=== PATIENT | male | born 1950 | race Caucasian/White ===

== ENCOUNTER 2017-05-04 20:48 | Inpatient (IN) | payer MEDICARE ==
[2017-05-04 21:05] VITALS: BMI 23.4
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
[2017-05-04] MEDS ORDERED: MAG HYDROX/AL HYDROX/SIMETH 30 ML UNIT-DOSE CUP PO PRN (21:15)
[2017-05-04] MEDS ORDERED: NICOTINE POLACRILEX 4 MG GUM BUC PRN (21:15)
[2017-05-04] MEDS ORDERED: MENTHOL/PHENOL 1 EACH UD MM PRN (21:15)
[2017-05-04] MEDS ORDERED: MAGNESIUM CITRATE 300 ML BOTTLE PO PRN (21:15)
[2017-05-04] MEDS ORDERED: MAGNESIUM HYDROX 2400MG/30ML ORAL SUSPENSION 30 ML CUP PO PRN (21:15)
[2017-05-04] MEDS ORDERED: hydrOXYzine PAMOATE 25 MG CAPSULE (FP) PO PRN (21:15)
[2017-05-04] MEDS ORDERED: P-EPHED 60MG/TRIPROLIDI 2.5MG TABLET PO PRN (21:15)
[2017-05-04] MEDS ORDERED: guaiFENesin/D-METHORPHAN HB 10 ML UNIT-DOSE CUPS PO PRN (21:15)
[2017-05-04] MEDS ORDERED: chlordiazePOXIDE HCL 25 MG CAPSULE PO ONE (21:15)
[2017-05-04] MEDS ORDERED: ACETAMINOPHEN 325 MG TABLET (FP) PO PRN (21:15)
[2017-05-04] MEDS ORDERED: LOPERAMIDE HCL 2 MG CAPSULE PO PRN (21:15)
[2017-05-04] MEDS ORDERED: diphenhydrAMINE HCL 50 MG CAPSULE PO PRN (21:15)
[2017-05-04] MEDS: THIAMINE HCL 100 MG TABLET (FP) PO SCH (22:17)
[2017-05-04] MEDS: chlordiazePOXIDE HCL 25 MG CAPSULE PO SCH (22:18)
[2017-05-05] MEDS: chlordiazePOXIDE HCL 25 MG CAPSULE PO SCH ×4 (05:15→22:34)
[2017-05-05] MEDS: PRENATAL VITAMINS W/ FOLIC ACID TABLET (FP) PO SCH (10:05)
[2017-05-05] MEDS: NICOTINE 21 MG/24 HOURS TOPICAL PATCH TD SCH (10:05)
[2017-05-05 10:08] LABS: MCH 34.5 pg (25.7-33.7); MCHC 33.8 g/dl (32.0-35.9); MEAN CELL VOLUME 102.1 fl (80-96); MEAN PLT VOLUME 7.7 fl (7.5-11.1); PLATELET COUNT 110 K/MM3 (134-434); RDW 13.7 % (11.9-15.9); WHITE BLOOD COUNT 4.4 K/mm3 (4.0-10.0)
[2017-05-05 10:12] LABS: URINE APPEARANCE CLOUDY; URINE BILIRUBIN NEGATIVE (NEGATIVE); URINE BLOOD NEGATIVE (NEGATIVE); URINE COLOR YELLOW; URINE GLUCOSE (UA) NEGATIVE (NEGATIVE); URINE KETONE NEGATIVE (NEGATIVE); URINE LEUK ESTERASE NEGATIVE (NEGATIVE); URINE NITRITE NEGATIVE (NEGATIVE); URINE PROTEIN NEGATIVE (NEGATIVE); URINE UROBILINOGEN 4.0 E.U/dl mg/dL (0.2-1.0)
[2017-05-05 10:21] LABS: ALBUMIN 3.4 g/dl (3.4-5.0); ANION GAP 10 (8-16); CALCIUM 8.8 mg/dL (8.5-10.1); CO2 29 mmol/L (21-32); CREATININE 0.6 mg/dL (0.7-1.3); GLUCOSE,RANDOM 77 mg/dL (74-106); SGOT/AST 62 U/L (15-37); SGPT/ALT 31 U/L (12-78)
[2017-05-05 10:24] LABS: ALK PHOS 89 U/L (45-117); BILIRUBIN,TOTAL 1.3 mg/dL (0.2-1.0); TOT PROT 6.9 g/dl (6.4-8.2)
--- NOTE | 2017-05-05 12:47 | EKG ---
Test Reason : Blood Pressure : / mmHG Vent. Rate : 083 BPM Atrial Rate : 083 BPM P-R Int : 146 ms QRS Dur : 094 ms QT Int : 396 ms P-R-T Axes : 061 -45 070 degrees QTc Int : 465 ms NORMAL SINUS RHYTHM INCOMPLETE RIGHT BUNDLE BRANCH BLOCK LEFT ANTERIOR FASCICULAR BLOCK SEPTAL INFARCT , AGE UNDETERMINED ABNORMAL ECG NO PREVIOUS ECGS AVAILABLE Confirmed by GRETA FLORIAN MD ([id number]) on 05/05/2017 12:46:48 PM Referred By: Confirmed By:GRETA FLORIAN MD
--- NOTE | 2017-05-05 13:51 | PN ---
[facility] CIWA - CIWA Score Nausea/Vomitin-Mild Nausea/No Vomiting Muscle Tremors: 6 Anxiety: 4-Mod. Anxious/Guarded Agitation: 3 Paroxysmal Sweats: 2 Orientation: 2-Disoriented Date<2 days Tacttile Disturbances: 3-Moderate Itch/Numb/Burn Auditory Disturbances: 0-None Visual Disturbances: 1-Very Mild Sensitivity Headache: 0-None Present CIWA-Ar Total Score: 22 S Progress Note (SOAP) Subjective: Body Aches, Tremors, Interrupted sleep. Objective: PT. A & O X 2 (DISORIENTED ABOUT DAY / DATE). NO ACUTE DISTRESS. PT. DENIES CHEST PAIN. 05/05/17 13:47 Vital Signs Temperature 98.6 F 05/05/17 09:48 Pulse Rate 115 H 05/05/17 09:48 Respiratory Rate 20 05/05/17 09:48 Blood Pressure 161/88 05/05/17 09:48 O2 Sat by Pulse Oximetry (%) Laboratory Tests 05/05/17 05/05/17 05/05/17 06:30 06:30 06:30 WBC 4.4 RBC 3.45 L Hgb 11.9 Hct 35.2 L MCV 102.1 H MCH 34.5 H MCHC 33.8 RDW 13.7 Plt Count 110 L D MPV 7.7 Sodium 140 Potassium 3.3 L Chloride 101 Carbon Dioxide 29 Anion Gap 10 BUN 9 Creatinine 0.6 L Creat Clearance w eGFR > 60 Random Glucose 77 Calcium 8.8 Total Bilirubin 1.3 H D AST 62 H D ALT 31 D Alkaline Phosphatase 89 Total Protein 6.9 Albumin 3.4 Urine Color Urine Appearance Urine pH Urine Protein Urine Glucose (UA) Urine Ketones Urine Blood Urine Nitrite Urine Bilirubin Urine Urobilinogen Ur Leukocyte Esterase RPR Titer Nonreactive 05/05/17 07:15 WBC RBC Hgb Hct MCV MCH MCHC RDW Plt Count MPV Sodium Potassium Chloride Carbon Dioxide Anion Gap BUN Creatinine Creat Clearance w eGFR Random Glucose Calcium Total Bilirubin AST ALT Alkaline Phosphatase Total Protein Albumin Urine Color Yellow Urine Appearance Cloudy Urine pH 7.0 Urine Protein Negative Urine Glucose (UA) Negative Urine Ketones Negative Urine Blood Negative Urine Nitrite Negative Urine Bilirubin Negative Urine Urobilinogen 4.0 e.u/dl Ur Leukocyte Esterase Negative RPR Titer LABS NOTED. Assessment: 05/05/17 13:48 WITHDRAWAL SYMPTOMS. Plan: CONTINUE DETOX. K, 20 MEQ NOW, THEN 20 MEQ BID AFTER. CLONIDINE, 0.1 MG X 1 FOR ELEVATED BP AND FOR DETOX SYMPTOMS. REPEAT CBC ON 05/07/2017 FOR ABNORMAL ADMISSION LEVELS. INCREASE PO FLUID INTAKE.
[2017-05-05] MEDS ORDERED: cloNIDine HCL 0.1 MG TABLET PO ONE (13:57)
[2017-05-05] MEDS: POTASSIUM CHLORIDE TABS 20 MEQ TABLET.ER (FP) PO SCH ×2 (15:13→22:34)
[2017-05-05] MEDS: amLODIPine BESYLATE 5 MG TABLET (FP) PO SCH (17:27)
[2017-05-05] MEDS: THIAMINE HCL 100 MG TABLET (FP) PO SCH (22:34)
[2017-05-06] MEDS: chlordiazePOXIDE HCL 25 MG CAPSULE PO SCH ×3 (07:09→17:12)
[2017-05-06] MEDS: amLODIPine BESYLATE 5 MG TABLET (FP) PO SCH (10:13)
[2017-05-06] MEDS: NICOTINE 21 MG/24 HOURS TOPICAL PATCH TD SCH (10:13)
[2017-05-06] MEDS: PRENATAL VITAMINS W/ FOLIC ACID TABLET (FP) PO SCH (10:13)
[2017-05-06] MEDS: POTASSIUM CHLORIDE TABS 20 MEQ TABLET.ER (FP) PO SCH ×2 (10:13→21:58)
[2017-05-06] MEDS ORDERED: LACTULOSE 20 GM/30 ML UDC (FOR ORAL USE ONLY) PO SCH (11:15)
--- NOTE | 2017-05-06 11:24 | PN ---
[facility] CIWA - CIWA Score Nausea/Vomitin-No Nausea/No Vomiting Muscle Tremors: 6 Anxiety: 2 Agitation: 2 Paroxysmal Sweats: 3 Orientation: 2-Disoriented Date<2 days Tacttile Disturbances: 1-Very Mild Itch/Numbness Auditory Disturbances: 0-None Visual Disturbances: 2-Mild Sensitivity Headache: 0-None Present CIWA-Ar Total Score: 18 [facility] Progress Note (SOAP) Subjective: Fatigue, Tremors, Sweating, Nausea, Constipation, Body Aches. Objective: PT. A & O X 2 (DISORIENTED ABOUT DAY / DATE). NO ACUTE DISTRESS. PT. DENIES CHEST PAIN. 05/06/17 11:22 Vital Signs Temperature 97.3 F L 05/06/17 09:41 Pulse Rate 115 H 05/06/17 09:41 Respiratory Rate 18 05/06/17 09:41 Blood Pressure 134/76 05/06/17 09:41 O2 Sat by Pulse Oximetry (%) Laboratory Tests 05/05/17 05/05/17 05/05/17 06:30 06:30 06:30 WBC 4.4 RBC 3.45 L Hgb 11.9 Hct 35.2 L MCV 102.1 H MCH 34.5 H MCHC 33.8 RDW 13.7 Plt Count 110 L D MPV 7.7 Sodium 140 Potassium 3.3 L Chloride 101 Carbon Dioxide 29 Anion Gap 10 BUN 9 Creatinine 0.6 L Creat Clearance w eGFR > 60 Random Glucose 77 Calcium 8.8 Total Bilirubin 1.3 H D AST 62 H D ALT 31 D Alkaline Phosphatase 89 Ammonia Total Protein 6.9 Albumin 3.4 Urine Color Urine Appearance Urine pH Ur Specific [place] Urine Protein Urine Glucose (UA) Urine Ketones Urine Blood Urine Nitrite Urine Bilirubin Urine Urobilinogen Ur Leukocyte Esterase RPR Titer Nonreactive 05/05/17 05/06/17 07:15 06:30 WBC RBC Hgb Hct MCV MCH MCHC RDW Plt Count MPV Sodium Potassium Chloride Carbon Dioxide Anion Gap BUN Creatinine Creat Clearance w eGFR Random Glucose Calcium Total Bilirubin AST ALT Alkaline Phosphatase Ammonia 45.03 H Total Protein Albumin Urine Color Yellow Urine Appearance Cloudy Urine pH 7.0 Ur Specific [place] 1.020 Urine Protein Negative Urine Glucose (UA) Negative Urine Ketones Negative Urine Blood Negative Urine Nitrite Negative Urine Bilirubin Negative Urine Urobilinogen 4.0 e.u/dl Ur Leukocyte Esterase Negative RPR Titer LABS NOTED. RESULT OF AMMONIA LEVEL DRAWN 05/06/2017 NOTED. 05/06/17 11:23 05/06/17 11:23 05/06/17 11:53 Assessment: 05/06/17 11:22 WITHDRAWAL SYMPTOMS. Plan: CONTINUE DETOX. START LACTULOSE, 20 GRAMS PO BID, FIRST DOSE NOW. CONTINUE TO MONITOR BP. RE-CHECK K AND AMMONIA LEVELS TOMORROW AM.
[2017-05-06] MEDS: IBUPROFEN 400 MG TABLET (FP) PO PRN (11:54)
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
[2017-05-06] MEDS: chlordiazePOXIDE HCL 25 MG CAPSULE PO PRN (14:54)
--- NOTE | 2017-05-06 15:45 | CONSULT ---
[facility] Psychiatric Consult - Data Date of interview: 05/06/17 Admission source: [facility] Identifying data: Readmission to [facility] for this 66 y/o male seeking detoxification treatment on for alcohol dependence.Patient is uncooperative,agitated,erratic as evidenced by his insistence to leave the unit in spite of a clear context of mental confusion/medical instability (elevated ammonia level = 45.03).No demographic information is provided by the patient at this time. Substance Abuse History: Patient presents with an extensive history of alcohol abuse (45 years).Previous records indicate a pattern of multiple evaluations at [facility] (alcohol intoxication).Smokes one pack of cigarettes daily. Medical History: Patient is a poor historian due to cloudiness of sensorium.Review of [facility] report indicates that this patient,with the exception of alcohol-related issues,has a fair medical profile. Psychiatric History: Patient denies history of psychiatric hospitalizations.No OPD care.Mr Zhang denies history of suicide attempts. Physical/Sexual Abuse/Trauma History: Not discussed in this interview. Additional Comment: Utox screen not available.Breath Alcohol Content: 0.374 on admission (noted in S report). Mental Status Exam - Mental Status Exam Alert and Oriented to: Place, Person Cognitive Function: Grossly Intact Patient Appearance: Unkempt, Disheveled (malodorous) Mood: Angry, Hostile, Irritable Affect: Blunted Patient Behavior: Restless (coarse tremors of upper extremities), Uncooperative , Impulsive, Resitive to Care, Agitated (wants to leave the unit) Speech Pattern: Inappropriate, Excessive, Perseverating (disorganized) Voice Loudness: Mildly Loud Thought Process: Disorganized Thought Disorder: Paranoid Ideation, Bizarre Hallucinations: Denies Suicidal Ideation: Denies Homicidal Ideation: Denies Insight/Judgement: Impaired Sleep: Poorly Appetite: Fair Gait/Station: Other (unsteady gait) Psychiatric Findings - Problem List ([place] 1, 2,3) (1) Delirium Current Visit: Yes Status: Suspected (2) Alcohol dependence with uncomplicated withdrawal Current Visit: Yes Status: Acute (3) Nicotine dependence Current Visit: Yes Status: Acute Qualifiers: Nicotine product type: cigarettes - Initial Treatment Plan Initial Treatment Plan: Previous records are reviewed.[facility] report is appreciated.Labs results seen.Case presented by KEDAR Prieto and URSULA Abad.Options of treatment are revisited.Constant Observation (1:1) for safety/ prevention of elopement : ordered.Detoxification is under way.Medical vigilance.Review of recent pharmacy claims : no data.Home medications : no information.Consider collection of collateral information (relatives/previous caregivers).Seroquel 25 mg po bid to address agitation.Fall precautions.Will follow progress.
[2017-05-06] MEDS: QUEtiapine FUMARATE 25 MG TABLET (FP) PO SCH (21:58)
[2017-05-06] MEDS: chlordiazePOXIDE 5 MG CAPSULE PO SCH (21:59)
[2017-05-06] MEDS ORDERED: QUEtiapine FUMARATE 50 MG TABLET PO SCH (22:00)
[2017-05-06] MEDS: LACTULOSE 20 GM/30 ML UDC (FOR ORAL USE ONLY) PO SCH (22:02)
[2017-05-06] MEDS: THIAMINE HCL 100 MG TABLET (FP) PO SCH (22:02)
[2017-05-06] MEDS: METHYL SALICYLATE/MENTHOL OINT 30 GM TUBE TP SCH (22:08)
[2017-05-07] MEDS: chlordiazePOXIDE 5 MG CAPSULE PO SCH ×3 (06:12→17:58)
[2017-05-07] MEDS: LACTULOSE 20 GM/30 ML UDC (FOR ORAL USE ONLY) PO SCH ×2 (09:26→22:00)
[2017-05-07] MEDS: METHYL SALICYLATE/MENTHOL OINT 30 GM TUBE TP SCH ×2 (09:26→22:43)
[2017-05-07] MEDS: POTASSIUM CHLORIDE TABS 20 MEQ TABLET.ER (FP) PO SCH ×2 (09:26→22:00)
[2017-05-07] MEDS: PRENATAL VITAMINS W/ FOLIC ACID TABLET (FP) PO SCH (09:26)
[2017-05-07] MEDS: QUEtiapine FUMARATE 25 MG TABLET (FP) PO SCH ×2 (09:27→22:00)
[2017-05-07 10:33] LABS: BASOPHIL 0.6 % (0-2.0); EOSINOPHIL 9.1 % (0-4.5); MCH 34.2 pg (25.7-33.7); MEAN CELL VOLUME 103.6 fl (80-96); MEAN PLT VOLUME 8.2 fl (7.5-11.1); PLATELET COUNT 122 K/MM3 (134-434); RDW 13.1 % (11.9-15.9); WHITE BLOOD COUNT 3.9 K/mm3 (4.0-10.0)
[2017-05-07] MEDS: NICOTINE 21 MG/24 HOURS TOPICAL PATCH TD SCH (10:41)
[2017-05-07] MEDS: HYDROCORTISONE 0.5% TOPICAL OINTMENT TUBE TP SCH ×2 (10:41→22:43)
[2017-05-07] MEDS: amLODIPine BESYLATE 5 MG TABLET (FP) PO SCH (10:41)
--- NOTE | 2017-05-07 10:42 | PN ---
[facility] Progress Note (SOAP) Subjective: PATIENT UNWILLING TO DISCUSS CURRENT DETOX SYMPTOMS WITH [employer] SALES REPRESENTATIVE TODAY. Objective: PT. STILL ON 1:1 CONTINUOUS OBSERVATION FOR SAFETY. PT. OBSERVED AMBULATING ON UNIT. WHEN ASKED ABOUT , AWARENESS OF CURRENT DAY / DATE AND OF CURRENT LOCATION, PT. UNWILLING TO RESPOND. 05/07/17 10:41 Vital Signs Temperature 98.1 F 05/07/17 09:40 Pulse Rate 82 05/07/17 09:40 Respiratory Rate 18 05/07/17 09:40 Blood Pressure 108/55 05/07/17 09:40 O2 Sat by Pulse Oximetry (%) Laboratory Tests 05/05/17 05/05/17 05/05/17 06:30 06:30 06:30 WBC 4.4 RBC 3.45 L Hgb 11.9 Hct 35.2 L MCV 102.1 H MCH 34.5 H MCHC 33.8 RDW 13.7 Plt Count 110 L D MPV 7.7 Neutrophils % Lymphocytes % Monocytes % Eosinophils % Basophils % Sodium 140 Potassium 3.3 L Chloride 101 Carbon Dioxide 29 Anion Gap 10 BUN 9 Creatinine 0.6 L Creat Clearance w eGFR > 60 Random Glucose 77 Calcium 8.8 Total Bilirubin 1.3 H D AST 62 H D ALT 31 D Alkaline Phosphatase 89 Ammonia Total Protein 6.9 Albumin 3.4 Urine Color Urine Appearance Urine pH Ur Specific [place] Urine Protein Urine Glucose (UA) Urine Ketones Urine Blood Urine Nitrite Urine Bilirubin Urine Urobilinogen Ur Leukocyte Esterase RPR Titer Nonreactive 05/05/17 05/06/17 05/07/17 07:15 06:30 06:30 WBC 3.9 L RBC 3.45 L Hgb 11.8 Hct 35.7 MCV 103.6 H MCH 34.2 H MCHC 33.0 RDW 13.1 Plt Count 122 L MPV 8.2 Neutrophils % 58.0 D Lymphocytes % 22.0 D Monocytes % 10.3 H Eosinophils % 9.1 H Basophils % 0.6 Sodium Potassium Chloride Carbon Dioxide Anion Gap BUN Creatinine Creat Clearance w eGFR Random Glucose Calcium Total Bilirubin AST ALT Alkaline Phosphatase Ammonia 45.03 H Total Protein Albumin Urine Color Yellow Urine Appearance Cloudy Urine pH 7.0 Ur Specific [place] 1.020 Urine Protein Negative Urine Glucose (UA) Negative Urine Ketones Negative Urine Blood Negative Urine Nitrite Negative Urine Bilirubin Negative Urine Urobilinogen 4.0 e.u/dl Ur Leukocyte Esterase Negative RPR Titer LABS NOTED. RESULT OF REPEAT AMMONIA LEVEL DRAWN EARLIER THIS AM PENDING. 05/07/17 10:46 Assessment: 05/07/17 10:46 WITHDRAWAL SYMPTOMS. Plan: CONTINUE DETOX. INCREASE PO FLUID INTAKE. PT. EXPRESSING DESIRE TO LEAVE DETOX UNIT AMA. ENCOURAGED PT. TO STAY TO COMPLETE DETOX REGIMEN. MAINTAIN 1:1 CONTINUOUS OBSERVATION FOR SAFETY.
[2017-05-07] MEDS ORDERED: LACTULOSE 20 GM/30 ML UDC (FOR ORAL USE ONLY) PO ONE (15:30)
--- NOTE | 2017-05-07 15:36 | PN ---
[facility] Progress Note Note: RESULT OF REPEAT AMMONIA LEVEL (44.0) NOTED. DAILY LACTULOSE SCHEDULE CHANGED TO TID (FIRST DOSE NOW). PUMPER BREWERY Leora TIRADO AND Rufina COOPER CURRENTLY IN PROCESS OF WORKING ON HELPING TO ARRANGE DISCHARGE PLANNING FOR PATIENT. OUTCOME PENDING. Rufina PALMER NP
[2017-05-07] MEDS: chlordiazePOXIDE HCL 25 MG CAPSULE PO PRN ×2 (15:41→19:40)
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
[2017-05-07] MEDS: THIAMINE HCL 100 MG TABLET (FP) PO SCH (22:00)
[2017-05-07] MEDS: chlordiazePOXIDE HCL 10 MG CAPSULE PO SCH (22:00)
[2017-05-07] MEDS: IBUPROFEN 400 MG TABLET (FP) PO PRN (22:00)
[2017-05-08 06:21] VITALS: BP 146/81; PULSE 90; TEMP 97
[2017-05-08] MEDS: LACTULOSE 20 GM/30 ML UDC (FOR ORAL USE ONLY) PO SCH (06:48)
[2017-05-08] MEDS: chlordiazePOXIDE HCL 10 MG CAPSULE PO SCH (06:48)
--- NOTE | 2017-05-08 07:09 | PN ---
[facility] Progress Note Note: ALERT,ORIENTED X3, Vital Signs Temperature 97.0 F L 05/08/17 06:21 Pulse Rate 90 05/08/17 06:21 Respiratory Rate 20 05/08/17 06:21 Blood Pressure 146/81 05/08/17 06:21 O2 Sat by Pulse Oximetry (%) WILL DISCONTINUE ONE ON ONE
--- NOTE | 2017-05-08 09:53 | DS ---
[facility] Detox Discharge Summary Admission Date: 05/04/17 Discharge Date: 05/08/17 - History Present History: Alcohol Dependence Additional Comments: PATIENT A & O X 3, DISCHARGED IN STABLE MEDICAL CONDITION. 1:1 CONTINUOUS STAFF OBSERVATION STATUS DISCONTINUED BY DR. JERROD MD PRIOR TO DISCHARGE. PATIENT ADVISED TO FOLLOW-UP SOON POSSIBLE WITH PRIMARY CARE MEDICAL PROVIDER FOR FOLLOW-UP MEDICAL ASSESSMENT AND FOR ELEVATED AMMONIA LEVEL WHILE ADMITTED FOR DETOX. PATIENT REPORTS THAT HE DOES NOT CURRENTLY HAVE A PRIMARY CARE MEDICAL PROVIDER. [facility] ([place], [place]) RECOMMENDED TO PATIENT FOR FOLLOW-UP FOR PRIMARY MEDICAL CARE. COPIES OF ALL LABWORK DRAWN WHILE ADMITTED FOR DETOX (INCLUDING AMMONIA LEVELS) GIVEN TO PATIENT UPON DISCHARGE. PATIENT REPORTS [facility] ([address] [place] [id number] ) HIS PREFERRED PHARMACY. PRESCRIPTION FOR LACTULOSE, 20 GRAMS PO BID (30 DAYS) SENT TO [facility]. CORPORATE GENERAL MANAGER CALLED [facility] TO CONFIRM RECEIPT OF PRESCRIPTION. PATIENT ADVISED TO GO TO [facility] AND START TAKING MEDICATION SOON POSSIBLE AFTER DISCHARGE. PATIENT OFFERED OPPORTUNITY TO HAVE CAR SERVICE TAKE HIM HOME; HOWEVER, PATIENT REFUSED. PATIENT ANXIOUS TO LEAVE UNIT, WALKED OFF UNIT WITHOUT ESCORT PRIOR TO FULL COMPLETION OF DISCHARGE PROCESS AND PAPERWORK. PATIENT FOLLOWED BY Leigh JANSEN RN, WHO MET HIM IN [place] AND THEN ESCORTED HIM DOWN TO SECURITY OFFICE. PATIENT GIVEN TWO (2) [employer] CARDS TO ASSIST WITH TRANSPORTATION AND THEN ESCORTED OUT OF BUILDING BY SECURITY. - Physical Exam Results Vital Signs: Vital Signs Temperature 97.0 F L 05/08/17 06:21 Pulse Rate 90 05/08/17 06:21 Respiratory Rate 20 05/08/17 06:21 Blood Pressure 146/81 05/08/17 06:21 O2 Sat by Pulse Oximetry (%) Pertinent Admission Physical Exam Findings: WITHDRAWAL SYMPTOMS. Laboratory Tests 05/05/17 05/05/17 05/05/17 06:30 06:30 06:30 WBC 4.4 RBC 3.45 L Hgb 11.9 Hct 35.2 L MCV 102.1 H MCH 34.5 H MCHC 33.8 RDW 13.7 Plt Count 110 L D MPV 7.7 Neutrophils % Lymphocytes % Monocytes % Eosinophils % Basophils % Sodium 140 Potassium 3.3 L Chloride 101 Carbon Dioxide 29 Anion Gap 10 BUN 9 Creatinine 0.6 L Creat Clearance w eGFR > 60 Random Glucose 77 Calcium 8.8 Total Bilirubin 1.3 H D AST 62 H D ALT 31 D Alkaline Phosphatase 89 Ammonia Total Protein 6.9 Albumin 3.4 Urine Color Urine Appearance Urine pH Ur Specific Smock Urine Protein Urine Glucose (UA) Urine Ketones Urine Blood Urine Nitrite Urine Bilirubin Urine Urobilinogen Ur Leukocyte Esterase RPR Titer Nonreactive 05/05/17 05/06/17 05/07/17 07:15 06:30 06:30 WBC 3.9 L RBC 3.45 L Hgb 11.8 Hct 35.7 MCV 103.6 H MCH 34.2 H MCHC 33.0 RDW 13.1 Plt Count 122 L MPV 8.2 Neutrophils % 58.0 D Lymphocytes % 22.0 D Monocytes % 10.3 H Eosinophils % 9.1 H Basophils % 0.6 Sodium Potassium Chloride Carbon Dioxide Anion Gap BUN Creatinine Creat Clearance w eGFR Random Glucose Calcium Total Bilirubin AST ALT Alkaline Phosphatase Ammonia 45.03 H Total Protein Albumin Urine Color Yellow Urine Appearance Cloudy Urine pH 7.0 Ur Specific Smock 1.020 Urine Protein Negative Urine Glucose (UA) Negative Urine Ketones Negative Urine Blood Negative Urine Nitrite Negative Urine Bilirubin Negative Urine Urobilinogen 4.0 e.u/dl Ur Leukocyte Esterase Negative RPR Titer 05/07/17 05/07/17 06:30 06:30 WBC RBC Hgb Hct MCV MCH MCHC RDW Plt Count MPV Neutrophils % Lymphocytes % Monocytes % Eosinophils % Basophils % Sodium Potassium 3.6 Chloride Carbon Dioxide Anion Gap BUN Creatinine Creat Clearance w eGFR Random Glucose Calcium Total Bilirubin AST ALT Alkaline Phosphatase Ammonia 44.0 H Total Protein Albumin Urine Color Urine Appearance Urine pH Ur Specific Smock Urine Protein Urine Glucose (UA) Urine Ketones Urine Blood Urine Nitrite Urine Bilirubin Urine Urobilinogen Ur Leukocyte Esterase RPR Titer LABS NOTED. - Treatment Hospital Course: Detox Protocol Followed, Detoxed Safely, Responded well, Discharged Condition Good Patient has Accepted a Rehab Referral to: PATIENT REFUSES REHAB REFERRAL. 12- STEP/AA OUTPATIENT PROGRAMS RECOMMENDED. - Medication Discharge Medications: Ambulatory Orders Lactulose 20 gm PO BID #60 ml 05/08/17 - Diagnosis (1) Alcohol dependence with uncomplicated withdrawal Current Visit: Yes Status: Acute (2) Nicotine dependence Current Visit: Yes Status: Chronic Qualifiers: Nicotine product type: cigarettes Substance use status: uncomplicated Qualified Code(s): F17.210 - Nicotine dependence, cigarettes, uncomplicated (3) Delirium Current Visit: Yes Status: Suspected - AMA Did Patient Leave Against Medical Advice: No
== END 2017-05-08 09:30 | disposition home or self-care (01) | DRG 775 ==
LOC: YASAS 20:48 → Y3N 21:04
PROVIDERS: ADMIT Internal Medicine; ATTEND Internal Medicine
PROC: HZ2ZZZZ Detoxification Services for Substance Abuse Treatment (ICD-10-PCS; principal; 2017-05-08)
DX: F10.230 Alcohol dependence with withdrawal, uncomplicated (principal); F17.210 Nicotine dependence, cigarettes, uncomplicated; F10.231 Alcohol dependence with withdrawal delirium; R26.81 Unsteadiness on feet
CPT/HCPCS: 36415; 80053; 81003; 82140; 84132; 85025; 85027; 86593; 93005; 93010

== ENCOUNTER 2019-12-31 17:49 | Emergency (ER) | payer OTHER ==
[2019-12-31 18:02] VITALS: TEMP 97.4; BMI 29.0
[2019-12-31] MEDS ORDERED: SODIUM CHLORIDE 0.9% 500 ML INFUS.BAG IV ONE (19:07)
[2019-12-31] MEDS ORDERED: OXYMETAZOLINE 0.05% NASAL SOLUTION 15 ML BOTTLE NS ONE (19:07)
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
--- NOTE | 2019-12-31 19:50 | PDOC ---
Attending Attestation - Resident Resident Name: Cassia Yousifian - ED Attending Attestation I have performed the following: I have examined & evaluated the patient, The case was reviewed & discussed with the resident, I agree w/resident's findings & plan - HPI HPI: 12/31/19 22:18 Pt comes with epistaxis; states that he has had nosebleed since yesterday and went to [facility], where a pack was placed; pt removed the pack in 24hrs and it continued to bleed. - Physicial Exam PE: 12/31/19 22:23 afebrile Hemodynamically stable Pt given oxymetazoline Pt nares normal heent normal Lungs and heart normal - Medical Decision Making 12/31/19 22:37 Pt is stable for discharge home. 12/31/19 22:44 Labs are normal vitals stable; exam normal pt is with family and will be discharged home Discharge - Discharge Information Problems reviewed: Yes Clinical Impression/Diagnosis: Nosebleed Condition: Improved Disposition: HOME - Follow up/Referral Referrals: ON STAFF,NOT [Primary Care Provider] - Mateo Tucker MD [Staff Physician] - Alex Hernandez MD [Staff Physician] - - Patient Discharge Instructions Patient Printed Discharge Instructions: Nosebleeds (Alternative Therapy), DI for Nosebleed Additional Instructions: You came into the ER with a nose bleed. The nose bleed stopped after we applied Oxymetazoline in your nostril. ONLY APPLY THIS SPRAY TWICE A DAY AT MOST!!!! TAKING THIS MEDICATION MORE THAN TWICE A DAY CAN BE VERY DANGEROUS AND CAUSE TERRIBLE SIDE EFFECTS LIKE A STROKE OR WORSE. COME BACK TO THE ER IMMEDIATELY IF YOU START BLEEDING AGAIN. We have given you the number for 2 nose doctors to call and schedule a follow up with. Thank you for coming to the [facility] ER. We hope you feel better soon! Print Language: KINYARWANDA - Post Discharge Activity
[2019-12-31 20:43] VITALS: BP 130/63; PULSE 89
[2019-12-31 21:17] LABS: BASO % 0.4 % (0-2.0); EOS % 1.1 % (0-4.5); HEMATOCRIT 29.2 % (35.4-49); HEMOGLOBIN 9.9 GM/dL (11.7-16.9); LYMPH % 36.3 % (8-40); MCH 32.3 pg (25.7-33.7); MCHC 33.9 g/dl (32.0-35.9); MEAN CELL VOLUME 95.3 fl (80-96); MEAN PLT VOLUME 8.7 fl (7.5-11.1); MONO % 6.3 % (3.8-10.2); NEUT % 55.9 % (42.8-82.8); PLATELET COUNT 198 K/MM3 (134-434); RBC 3.07 M/mm3 (4.00-5.60); RDW 13.9 % (11.9-15.9); WHITE BLOOD COUNT 7.8 K/mm3 (4.0-10.0)
[2019-12-31 21:26] LABS: INR 1.03 (0.83-1.09); PROTHROMBIN TIME (PATIENT) 12.1 SEC (9.7-13.0)
[2019-12-31 21:28] LABS: ACTIVATED PTT 33.6 SECONDS (25.2-36.5)
[2019-12-31 22:00] LABS: ALBUMIN 3.8 g/dl (3.4-5.0); BILIRUBIN,TOTAL 0.6 mg/dL (0.2-1); BLOOD UREA NITROGEN 31.1 mg/dL (7-18); CALCIUM 8.8 mg/dL (8.5-10.1); CREATININE 0.7 mg/dL (0.55-1.3); POTASSIUM 4.2 mmol/L (3.5-5.1); TOT PROT 7.2 g/dl (6.4-8.2)
== END 2019-12-31 22:49 | disposition home or self-care (01) ==
LOC: JER 17:49
PROC: 3E0337Z Introduction of Electrolytic and Water Balance Substance into Peripheral Vein, Percutaneous Approach (ICD-10-PCS; principal; 2019-12-31)
DX: R04.0 Epistaxis (principal); I10 Essential (primary) hypertension; F10.21 Alcohol dependence, in remission
CPT/HCPCS: 36415; 80053; 85025; 85610; 85730; 99283-25